=== PATIENT | female | born 1985 | race Caucasian/White ===

== ENCOUNTER 2025-03-29 13:29 | Emergency (ER) | payer OTHER, SELFPAY ==
[2025-03-29 13:29] VITALS: BP 126/66; PULSE 90; RESP 20; TEMP 36.9; O2SAT 96
[2025-03-29 13:36] VITALS: O2SAT 96
[2025-03-29 14:17] VITALS: PULSE 102; RESP 20; O2SAT 96
--- NOTE | 2025-03-29 15:41 | ED_ITS ---
HPI - General Adult General Chief complaint: Allergic Reaction Stated complaint: allergic reaction Time Seen by Provider: 03/29/25 15:07 History of Present Illness HPI narrative: 39-year-old female present to the emergency department for evaluation for allergic reaction. Patient had just had lunch and began having increased difficulty breathing, but she is having a sore throat and patient had onset of nausea and vomiting. Patient did present to the school nurse and patient was treated with an EpiPen and patient states that this helped immediately. Patient did get a 2nd dose of epinephrine EN route by a EMS and this was at approximately 12:45-1. Upon arrival emergency department patient states that symptoms have resolved. Patient denies any difficulty breathing difficulty swallowing. Patient was also treated with Benadryl and route. Patient denies any previous allergic history. Patient has no prior history of anaphylaxis. Patient does have the ingredient list for the soups and there are not many ingredients that she has not been exposed to previously. Patient den ies any new medications new perfumes detergents or any other exposures. Related Data Allergies Allergy/AdvReac Type Severity Reaction Status Date / Time No Known Allergies Allergy Mild Verified 03/01/14 08:02 Review of Systems Review of Systems: All systems reviewed & are unremarkable except as noted in HPI and below Exam Narrative: APPEARANCE: Well appearing, no pain, no distress, well-nourished. HEAD: normocephalic, atraumatic. EYES: PERRLA/EOMI, conjunctivae clear. NOSE: Normal no drainage EARS:TMS clear with good light reflex. THROAT: Pharynx clear, no exudate. NECK: Supple. No adenopathy, no masses. RESPIRATORY: Airway patent, respirations nonlabored. Clear to auscultation bilaterally, no rales, rhonchi, wheezing. CARDIOVASCULAR: Regular rate and rhythm without murmurs rubs or gallops. ABDOMINAL: Soft, nontender, nondistended, normal bowel sounds MUSCULOSKELETAL: Moves all extremities. Strength/ROM intact, No edema, No calf tenderness. NEURO: Alert. Cranial nerves II through XII intact. Good gait. Good coordination SKIN: Warm, dry. Normal Color Course Vital Signs Vital signs: Vital Signs Temperature 98.5 F 03/29/25 13:29 Pulse Rate 90 03/29/25 13:29 Respiratory Rate 20 03/29/25 13:29 Blood Pressure 126/66 03/29/25 13:29 Pulse Oximetry 96 03/29/25 13:29 Oxygen Delivery Room Air 03/29/25 13:29 Temperature 98.5 F 03/29/25 13:29 Pulse Rate 86 03/29/25 16:11 Respiratory Rate 16 03/29/25 16:11 Blood Pressure 130/86 03/29/25 16:11 Pulse Oximetry 98 03/29/25 16:11 Oxygen Delivery Room Air 03/29/25 13:36 Medical Decision Making MDM Narrative Medical decision making narrative: 39-year-old female presenting to the emergency department for evaluation for allergic reaction. Patient was treated with an EpiPen scene and did begin to have some improvement. Patient was treated with Benadryl and route. Patient was given 60 mg of oral prednisone and 20 mg of IV famotidine in the emergency department. Patient was symptom free 3 hours after her most recent epinephrine. Patient was encouraged of close follow-up with her primary care physician. Patient was was comfortable with plan for discharge. Patient will be provided EpiPen the patient was educated on the need to return to the emergency department if she utilizes these pants. Differential Diagnosis Differential Diagnosis: Allergic reaction Vital Signs Vital Signs: Vital Signs Temperature 98.5 F 03/29/25 13:29 Pulse Rate 90 03/29/25 13:29 Respiratory Rate 20 03/29/25 13:29 Blood Pressure 126/66 03/29/25 13:29 Pulse Oximetry 96 03/29/25 13:29 Oxygen Delivery Room Air 03/29/25 13:29 Temperature 98.5 F 03/29/25 13:29 Pulse Rate 86 03/29/25 16:11 Respiratory Rate 16 03/29/25 16:11 Blood Pressure 130/86 03/29/25 16:11 Pulse Oximetry 98 03/29/25 16:11 Oxygen Delivery Room Air 03/29/25 13:36 Lab Data Lab results reviewed: Yes I reviewed the patient's lab results. Discharge Plan Discharge Clinical Impression: Allergic reaction Patient Disposition: Home Condition: Stable Instructions: Antibiotic Form, Anaphylaxis (ED), Allergies (ED) Additional Instructions: Prednisone as directed for the next 5 days. Benadryl as needed for itching or hives. If you have worsening breathing or swelling of tongue or lips then you will need to use the EpiPen. If you require the use of the EpiPen then you need to present to the emergency department for evaluation. Have close follow-up with your primary care physician for allergy testing. If you have any worsening symptoms please call or return to the emergency department. Patient Language: Sinhala Prescriptions: New prednisone 50 mg tablet 50 mg PO DAILY 5 Days Qty: 5 0RF epinephrine [EpiPen 2-Jerod] 0.3 mg/0.3 mL auto-injector 0.3 mg IM Q5-15M PRN (Reason: anaphylaxis) Qty: 2 0RF Rx Instructions: do not exceed 3 doses per episode Follow-up/Referrals: Jj,ANGELO Deng [Primary Care Provider, Unknown]
[2025-03-29] MEDS: FAMOTIDINE 20 MG/2 ML VIAL IV PUSH (15:49)
[2025-03-29 16:11] VITALS: BP 130/86; PULSE 86; RESP 16; O2SAT 98
== END 2025-03-29 16:13 | disposition home or self-care (01) ==
PROVIDERS: Emergency Provider Emergency Medicine; PCP Physician Assistant
DX: T78.40XA Allergy, unspecified, initial encounter (principal)
CPT/HCPCS: 96374; 99284; J7512